=== PATIENT | female | born 1975 | race Caucasian/White ===

== ENCOUNTER → 2016-10-07 17:39 | Outpatient (CLI) | payer MEDICAID ==
[~2016-10-07 17:39] MED LIST: BENADRYL50 MG PO; HYDROCODONE-APA1 TAB PO; PERCOCET 10/3251 TA1 PO; SEROQUEL200 MG PO; VIVELLE-DOT 00.05 MG TD; XANAX0.5 MG PO
== END | disposition home or self-care (01) ==
LOC: D.MAMMO 08-26 08:30
DX: N60.01 Solitary cyst of right breast (principal)

== ENCOUNTER → 2019-05-28 09:37 | Outpatient (CLI) | payer MEDICAID ==
[~2019-05-28 09:37] MED LIST changes: +ATARAX 25 MG TA25 MG PO; +HYDROCODONE-A1 UDTA2 PO; +ROBAXIN500 MG PO
--- NOTE | 2019-05-29 13:38 | EC ---
PATIENT:JESSICA OWENS DATE OF SERVICE: 05/28/19 SEX: F MEDICAL RECORD: [id number] DATE OF : 75 [facility] AGE OF PATIENT: 43 ADMISSION DATE: 05/28/19 REFERRING PHYSICIAN: INTERPRETING PHYSICIAN: LEV VERA MD ECHOCARDIOGRAM REPORT ECHO CHARGES 4 ECHO COMPLETE Date: 05/28/19 CLINICAL DIAGNOSIS: DYSPNEA, CHEST PAIN, EDEMA ECHOCARDIOGRAPHIC MEASUREMENTS (adult normal given) AC root (d.<3.7cm) 3.6 cm LV Septum d (<1.2 cm> 1.2 cm Valve Excursion 1.9 cm LV Septum (systole) 1.4 cm Left Atria (s.<4.0cm> 4.0 cm LVPW d(<1.2cm) 1.4 cm RV (d.<2.3cm) 2.7 cm LVPW (sytole) 1.6 cm LV diastole(<5.6CM) 4.7 cm MV E-F(>70mm/sec) cm LV systole 3.5 cm LVOT Diameter 1.8 cm MV exc.(>10mm) 1.3 cm Est.ejection fraction (50-75%) % DOPPLER: LVIT cm/sec A 66.0 cm/sec E 58.0 cm/sec LA cm/sec RVSP 18 mmHg LVOT 120 cm/sec AOP1/2T m/s Asc. Ao 123 cm/sec RVOT 71 cm/sec RA cm/sec PA 103 cm/sec AV Gradient Peak 6.02 mmHg AV Mean 3.12 mmHg AV Area 2.5 cm MV Gradient Peak 3.62 mmHg MV Mean 1.32 mmHg MV Area cm COMMENTS: Hand Candle Dipper: Anton DAVILA Social Welfare Administrator: 1 Dr. Vera TAPE# PACS Pericardial Effusion N DATE OF SERVICE: 05/28/2019 PROCEDURE: Echocardiogram. FINDINGS: 1. Left ventricular chamber size is within normal limits. Left ventricular systolic function is normal at 60%. 2. Left atrium is dilated at 4.0 cm. Right atrium and right ventricular chamber sizes are within normal limits. 3. Valvular structures have normal structure and motion. ECHOCARDIOGRAM REPORT [id number] JESSICA OWENS 4. Doppler interrogation reveals no significant valvular insufficiency or stenosis and pulmonary systolic pressure is estimated at 18 mmHg. 5. No evidence of pericardial effusion or left ventricular thrombus. TRANSINT:[id number] Voice Confirmation ID: [id number] DOCUMENT ID: [id number] LEV VERA MD at 1338 CC: [id number] DICTATION DATE: 05/28/19 1656 DIVER HELPER: 05/29/19 0132 DEP CLI 05/28/19 [facility] [address] [id number]
--- NOTE | 2019-05-31 09:14 | ST ---
PATIENT:JESSICA OWENS MEDICAL RECORD: [id number] SEX: F LOCATION:[facility] ORDER #: ADMISSION DATE: 05/28/19 AGE OF PATIENT: 43 REFERRING PHYSICIAN: INTERPRETING PHYSICIAN: LEV ALVARADO MD DATE OF SERVICE: 05/28/2019 PROCEDURE: Nuclear stress test. INDICATION: Angina, shortness of breath, edema. TECHNIQUE: She was exercised on standard Lexiscan protocol with 33 mCi of sestamibi injected at peak stress, 11 mCi used previously for rest images. FINDINGS: Gated SPECT reveals preserved ejection fraction at 73% with good wall motion and thickening and brightening throughout all segments. SPECT imaging Cardiolite was used as myocardial perfusion agent. There is reversibility anteriorly and apically. This includes basal, mid, apical anterior segments as well as the apex itself. The degree of reversibility is moderate. The amount of myocardium involved is moderate to large. OVERALL IMPRESSION: This is an intermediate to high risk nuclear stress test reversibility anteriorly and apically suggestive of hemodynamically significant coronary artery disease. TRANSINT:[id number] Voice Confirmation ID: [id number] DOCUMENT ID: [id number] LEV ALVARADO MD at 0914 CC: [id number] DICTATION DATE: 05/29/19 1121 FINANCE ACCOUNTING INTERNSHIP: 05/30/[address] [facility] CLI 05/28/19 [address] [place] [address]
[2019-06-06 09:07] VITALS: BMI 45.9
== END | disposition home or self-care (01) ==
LOC: D.HCCARDIO 09:37 → D.HCCECHO 10:30
PROVIDERS: ATTEND Internal Medicine Interventional Cardiology
DX: R07.9 Chest pain, unspecified (principal)

== ENCOUNTER 2019-06-06 08:33 | Outpatient (CLI) | payer BC ==
[~2019-06-06] VITALS: Ht 175.3 cm; Wt 140.9 kg
--- NOTE | ~2019-06-06 | HEMODYNAMI ---
PATIENT:JESSICA OWENS MEDICAL RECORD: [id number] : 75 LOCATION:[facility] ADMISSION DATE: 06/06/19 Generatedon:06/06/201910:56 Patient name: JESSICA OWENS Patient #: [id number] SSN: [id number] : 1975 Date of study: 06/06/2019 Page: Of Hemodynamic Procedure Report Patient Data Patient Demographics Procedure consent was obtained First Name: JESSICA Gender: Female Last Name: ROMAN : 1975 [facility] Initial: TRINIDAD Age: 43 year(s) Patient #: [id number] Race: SSN: [id number] Additional ID: [id number] Contact details [address]: [address] [place] [address] State: [place] City: [place] Zip code: [address] Past Medical History Allergies Allergen Reaction Date Comments Reported Other allergy 06/06/2019 asprin Admission Admission Data Admission Date: 06/06/2019 Admission Time: 8:33 Arrival Date: 06/06/2019 Arrival Time: 9:30 Insurance Payor: Private health insurance [facility] #: [id number] Height (in.): 68.9 BSA: 2.49 (m2) Height (cm.): 175 BMI: 46.04 (kg/m2) Weight (lbs.): 310.85 Weight (kg.): 141 Lab Results Lab Result Date: 06/06/2019 Lab Result Time: 0:00 Biochemistry Name Units Result Min Max BUN mg/dl 16 --(---*)-- 7 18 Creatinine mg/dl 0.9 --(-*--)-- 0.6 1.3 eGFR ml/min 72 *-(----)-- 90 120 NONAFRICAN CBC Name Units Result Min Max Hemoglobin g/dl 13.4 -*(----)-- 13.5 17.5 Procedure Procedure Types Cath Procedure Diagnostic Procedure LHC LHC w/Coronaries Sedation Charges Moderate Sedation up to 15 minutes Procedure Description Procedure Date Procedure Date: 06/06/2019 Procedure Start Time: 10:44 Procedure End Time: 10:53 Procedure Staff Name Function Dontrell Vera MD Performing Physician Aziza Donovan RT Monitor Flor Mccall RT Monitor Ana Maria Toledo RT Scrub Jewels Sheth RN Nurse Indication Angina Procedure Data Cath Procedure Fluoroscopy Diagnostic fluoroscopy Total fluoroscopy Time: 0.9 time: 0.9 min min Diagnostic fluoroscopy Total fluoroscopy dose: 419 dose: 419 mGy mGy Contrast Material Contrast Material Type Amount (ml) Isovue 300 36 Entry Location Entry Primary Successful Side Size Upsize Upsize Entry Closure Felix ccessful Closure Location (Fr) 1 (Fr) 2 (Fr) Remarks Device Remarks Radial Right 6 Fr Mechanical artery Short Compression Diagnostic catheters Device Type Used For End Catheter Placement DIAGNOSTIC [place] 110cm 5 Multi-vessel Fr catheter ([id number]) Angiography Procedure Complications No complications Procedure Medications Medication Administration Route Dosage 0.9% NaCl I.V. 100 ml/hr Oxygen etCO2 Nasal cannula 2 l/min Lidocaine 2% added to field 20 Heparin Flush Bag added to field 2 bags (1000units/500ml NS) Radial Cocktail added to field 1 syringe (Verapamil 2mg/Nitro 400mcg/Heparin 1500units) Versed I.V. 2 mg Fentanyl I.V. 50 mcg Versed I.V. 2 mg Fentanyl I.V. 50 mcg Versed I.V. 2 mg Fentanyl I.V. 50 mcg Versed I.V. 2 mg Fentanyl I.V. 50 mcg Hemodynamics Rest BSA: 2.49 (m2) HGB: 13.4 (g/dl) O2 Consumption: Estimated: 268.04 (ml/min) O2 Co nsumption indexed: Estimated:107.65 (ml/min/m) Heart Rate: 89 (bpm) Pressure Samples Time Site Value (mmHg) Purpose Heart Use Rate(bpm) 10:46 LV 96/29,24 Snapshot 176 Snapshots Pre Cath Intra NCS Post Cath Vital Signs Time Heart Resp SPO2 etCO2 NIBP (mmHg) Rhythm Pain Sedation Rate (ipm) (%) (mmHg) Status Level (bpm) 10:16:27 81 16 100 23 142/100(117) NSR 0 (11) 10(A) , No pain 10:20:39 88 12 100 9.7 160/98(131) NSR 0 (11) 10(A) , No pain 10:25:02 85 15 100 18.7 160/88(100) NSR 0 (11) 10(A) , No pain 10:29:16 73 16 100 30 138/90(118) NSR 0 (11) 10(A) , No pain 10:33:25 76 19 98 29.3 144/94(133) NSR 0 (11) 10(A) , No pain 10:37:41 74 21 100 36 120/87(110) NSR 0 (11) 10(A) , No pain 10:41:51 77 16 100 32.3 118/74(104) NSR 0 (11) 10(A) , No pain 10:45:59 87 19 100 39.8 137/82(107) NSR 0 (11) 10(A) , No pain 10:50:07 100 45 116/78(89) NSR 0 (11) 10(A) , No pain 10:54:15 99 41.3 125/76(106) NSR 0 (11) 10(A) , No pain Medications Time Medication Route Dose Verified Delivered Reason Notes E ffectiveness by by 10:28:49 0.9% NaCl I.V. 100 Dontrell Jewels used for ml/hr Chuy Sheth hospital receiving clerk 10:28:55 Oxygen etCO2 2 l/min Dontrell Jewels used for Nasal Chuy Sheth procedure cannula RN 10:29:01 Lidocaine 2% added 20ml Dontrell Dontrell for local to vial Chuy Vera MD anesthetic field 10:29:05 Heparin Flush added 2 bags Dontrell Jon used for Bag to Chuy Vera MD procedure (1000units/500ml field NS) 10:29:12 Radial Cocktail added 1 Dontrell Dontrell used for (Verapamil to syringe Chuy Vera MD procedure 2mg/Nitro field 400mcg/Heparin 1500units) 10:29:19 Versed I.V. 2 mg Dontrell Jewels for Chuy Sheth sedation RN 10:29:24 Fentanyl I.V. 50 mcg Dontrell Jewels for Chuy Sheth sedation RN 10:34:05 Fentanyl I.V. 50 mcg Dontrell Jewels for Chuy Sheth sedation RN 10:34:57 Versed I.V. 2 mg Dontrell Jewels for Chuy Sheth sedation RN 10:39:12 Versed I.V. 2 mg Dontrell Simmsa for Chuy Sheth sedation RN 10:39:19 Fentanyl I.V. 50 mcg Dontrell Simmsa for Chuy Sheth sedation RN 10:44:31 Versed I.V. 2 mg Dontrell Moranyla for Chuy Sheth sedation RN 10:44:40 Fentanyl I.V. 50 mcg Dontrell Moranyla for Chuy Sheth sedation supervisor alteration workroom Log Time Note 9:54:45 Arrival Date: 06/06/2019 9:30:00 AM 9:55:12 Insurance Payor : Private health insurance 9:55:21 Patient Height : 68.9 inches 9:55:31 Patient Weight : 310.85 lbs 9:56:45 Lab Result : eGFR NONAFRICAN 72 ml/min 9:56:45 Lab Result : Hemoglobin 13.4 g/dl 9:56:45 Lab Result : BUN 16 mg/dl 9:56:45 Lab Result : Creatinine 0.9 mg/dl 9:56:56 Diagnostic Cath Status : Elective 9:58:23 Indication : Angina 10:00:47 ACC Patient presents with Stable Angina CCS Anginal Class 3--Marked limitation of physical activity, angina occurs with ordinary activity.. 10:01:30 ACCPatient has been prescribed/administered the following anti-anginal medication within the last 2 weeks: None 10:01:36 Procedure Status Elective Heart Cath (OP). 10:02:08 Jewels Sheth RN sent for patient. Start room use. 10:02:11 Time tracking: Regular hours (M-F 7:00 - 5:00) 10:02:25 Plan of Care:Hemodynamics will remain stable., Cardiac rhythm will remain stable., Comfort level will be maintained., Respiratory function will remain adequate., Patient/ family verbilizes understanding of procedure., Procedure tolerated without complication., Recovers from procedure without complications.. 10:11:52 Patient received from Pre/Post Procedure Room to CCL 2 Alert and oriented. Tansferred to table in Supine position. 10:12:00 Signed procedure consent form obtained from patient. 10:12:03 Warm blankets applied, and padmini hugger turned on for patient comfort. 10:12:05 Warm blankets applied, and padmini hugger turned on for patient comfort. 10:12:12 Correct patient and procedure confirmed by team. 10:12:12 ECG and BP/O2 sat monitors applied to patient. 10:15:25 Vital chart was started 10:15:30 Baseline sample Acquired. 10:15:38 Rhythm: sinus rhythm 10:15:40 Full Disclosure recording started 10:15:51 - 10:15:58 H&P Date Dictated: 06/06/2019 H&P Addendum completed by physician on day of procedure. (MUST COMPLETE FOR ALL OUTPATIENTS), New H&P dictated by physician.. 10:16:01 Pre-procedure instructions explained to patient. 10:16:03 Pre-op teaching completed and patient verbalized understanding. 10:16:08 Family in waiting room. 10:16:11 Patient NPO since Midnight. 10:16:32 Patient allergic to Other allergyasprin 10:16:49 Is the patient allergic to Iodine/contrast media? No. 10:17:15 Is patient on blood thinner?No 10:17:22 ACC The patient was administered the following blood thiners within the last 24 hours: None 10:17:27 Patient diabetic? No. 10:19:15 ----Pre-sedation anethsthesia assessment.---- 10:19:20 Previous problem with sedation/anesthesia? No ? 10:19:24 Snore? Yes 10:19:26 Sleep apnea? No 10:19:28 Deviated septum? No 10:19:30 Opens mouth fully? Yes 10:19:44 Sticks out tongue? Yes 10:20:22 Airway obstruction? Yes asthma 10:20:28 Dentures? No ? 10:22:20 Pre procedure: left dorsailis pedis pulse 2+ Normal; easily identifiable; not easily obliterated 10:22:20 Pre procedure: right dorsailis pedis pulse 2+ Normal; easily identifiable; not easily obliterated 10:22:24 Modified Jean-Pierre's test Radial < 7 seconds 10:22:36 Patient pain scale 0/10 ?. 10:23:22 IV patent on arrival in left hand with 0.9% NaCl at [facility]. 10:23:33 Lab results completed and on chart. 10:23:46 Right Radial & Right Groin area was prepped with chlora-prep and draped in sterile fashion 10:23:48 Alarms reviewed by R. N. 10:23:49 Sharps counted by scrub and verified by R.N. 10:25:06 Patient not . Patient has had hysterectomy. 10:26:04 Use device set Radial Dx or PCI 10:26:06 ACIST Syringe (24274) opened to sterile field. 10:26:07 Medline Cath Pack ([id number]) opened to sterile field. 10:26:08 Bag Decanter (2002S) opened to sterile field. 10:26:09 ACIST Hand Control (41225) opened to sterile field. 10:26:10 ACIST Manifold (20850) opened to sterile field. 10:26:11 Tegaderm 4 x 4 (1626W) opened to sterile field. 10:26:17 MBrace Wrist Support ([id number]) opened to sterile field. 10:26:21 SHEATH 6FR RAIN (4624622) opened to sterile field. 10:26:25 EMERALD Guide Wire (403-483) opened to sterile field. 10:27:27 Physician arrived 10:27:28 --------ALL STOP TIME OUT------ 10:27:29 Final Timeout: patient, procedure, and site verified with staff and physician. All members of the team are in agreement. 10:27:33 Right Radial & Right Groin site verified by team. 10:27:42 Fire Safety Assessment: A--An alcohol-based skin anteseptic being used preoperatively., C--Open oxygen or nitrous oxide is being used., D--An ESU, laser, or fiber-optic light is being used. 10:27:51 2) 60-89 Mildly reduced kidney function, and other findings (as for stage 1) point to kidney disease. 10:27:59 Maximum allowable contrast dose (3.7 X eGFR X 0.75)199 ml. 10:28:00 Physical assessment completed. ASA score P 2 - A patient with mild systemic disease as per Dontrell Vera MD. 10:28:06 Sedation plan: IV Moderate Sedation Medication:Versed, Fentanyl 10:28:41 Zero performed for pressure channel P1 10::49 0.9% NaCl 100 ml/hr I.V. was administered by Jewels Sheth RN; used for procedure; Verbal order read back and verified. 10:28:55 Oxygen 2 l/min etCO2 Nasal cannula was administered by Jewels Sheth RN ; used for procedure; Verbal order read back and verified. 10:29:01 Lidocaine 2% 20ml vial added to field was administered by Dontrell Vera MD; for local anesthetic; Verbal order read back and verified. 10:29:05 Heparin Flush Bag (1000units/500ml NS) 2 bags added to field was administered by Dontrell Vera MD; used for procedure; Verbal order read back and verified. 10:29:12 Radial Cocktail (Verapamil 2mg/Nitro 400mcg/Heparin 1500units) 1 syring e added to field was administered by Dontrell Vera MD; used for procedure; Verbal order read back and verified. 10:29:19 Versed 2 mg I.V. was administered by Jewels Sheth RN; for sedation; Verbal order read back and verified. 10:29:24 Fentanyl 50 mcg I.V. was administered by Jewels Sheth RN; for sedation ; Verbal order read back and verified. 10:34:05 Fentanyl 50 mcg I.V. was administered by Jewels Sheth RN; for sedation ; Verbal order read back and verified. 10:34:57 Versed 2 mg I.V. was administered by Jewels Sheth RN; for sedation; Verbal order read back and verified. 10:39:12 Versed 2 mg I.V. was administered by Jewels Sheth RN; for sedation; Verbal order read back and verified. 10:39:19 Fentanyl 50 mcg I.V. was administered by Jewels Sheth RN; for sedation ; Verbal order read back and verified. 10:43:49 Procedure started. 10:44:02 Local anesthetic to right radial artery with Lidocaine 2% by Dontrell Vera MD.INITIAL ACCESS ONLY 10:44:31 Versed 2 mg I.V. was administered by Jewels Sheth RN; for sedation; Verbal order read back and verified. 10:44:40 Fentanyl 50 mcg I.V. was administered by Jewels Sheth RN; for sedation ; Verbal order read back and verified. 10:44:40 A 6 Fr Short sheath was inserted into the Right Radial artery 10:45:11 A DIAGNOSTIC [place] 110cm 5 Fr catheter ([id number]) was advanced over the wire and used for Multi-vessel Angiography. 10:46:29 LV hemodynamics recorded. 10:46:37 EF : 60 % 10:46:42 LV gram done using REEDER 10:46:49 Injector settings: Ml/sec: 5, Volume: 15, 10:46:56 LCA angiography performed. 10:47:06 Injector settings: Ml/sec: 3, Volume: 6, 10:47:30 ACCDominant side:Right 10:47:36 RCA angiography performed. 10:47:45 Catheter removed. 10:48:02 ZEPHYR REGULAR TR BAND (959905) opened to sterile field. 10:48:35 Sheath removed intact; hemostasis achieved with Mechanical Compression to the Right Radial artery. 10:48:39 Procedure ended.(Physican Out) 10:49:00 Fluoroscopy time 00.90 minutes. 10:49:06 Flurop Dose total: 419 10:49:06 Fluoroscopy dose: 419 mGy 10:49:18 Dose Area Product 21546 mGy/cm. 10:49:25 Contrast amount:Isovue 300 36ml. 10:49:30 Maximum allowable dose exceeded? No. 10:49:31 Sharps counted by scrub and verified by R.N. 10:49:43 [place] band inflated with 8cc of air. 10:49:45 Insertion/operative site no bleeding no hematoma. 10:50:16 Post right radial artery:stable 10:50:19 Post Procedure Pulses reassessed and unchanged 10:52:17 Post-procedure physical assessment completed. ASA score P 2 - A patient with mild systemic disease as per Dontrell Vera MD. 10:52:22 Post procedure rhythm: unchanged. 10:52:26 Post procedure instruction explained to patient.Patient verbalizes understanding. 10:52:28 Patient needs reinforcement of post procedure teaching. 10:53:14 Procedure type changed to Cath procedure, Diagnostic procedure, LHC, LH C w/Coronaries, Sedation Charges, Moderate Sedation up to 15 minutes 10:53:17 Procedure and supply charges have been captured, reviewed, submitted an d are correct. 10:53:26 Procedure Complication : No complications 10:53:29 Vital chart was stopped 10:53:30 See physician's report for complete and final results. 10:53:33 Report given to Pre/Post Procedure Room. 10:53:40 Patient transfered to Pre/Post Procedure Room with Stretcher. 10:53:45 Procedure ended. 10:53:45 Full Disclosure recording stopped 10:53:58 End room use (Document Last) Device Usage Item Name Manufacture Quantity Catalog Hospital Part Current Minima l Lot# / Number Charge Number Stock Stock Serial# Code ACIST Acist 1 14919 [id number] 395996 [id number] 20 Syringe Medical (09638) Systems Inc Medline Medline 1 [id number] 623153 10112 533376 5 Cath Pack ([id number]) Bag Microtek 1 2001S 712067 68392 844219 5 Decanter Medical Inc. () ACIST Hand Acist 1 65298 019013 663033 902837 5 Control Medical (03177) Systems Inc ACIST Acist 1 63437 514241 749163 650833 5 Manifold Medical (18275) Systems Inc Tegaderm 4 3M 1 1626W 558132 277014 983705 5 x 4 (1626W) MBrace Advanced 1 140-0250-00 479470 38620 463886 5 Wrist Vascular Support Dynamics ([id number]) SHEATH 6FR Cardinal 1 8475174 919769 6839247 664075 5 RAIN Health (8778194) EMERALD Cardinal 1 502-455 344060 357310 485017 5 Guide Wire Health (502-455) DIAGNOSTIC Terumo 1 40-5013 646541 029257 958850 5 [place] 110cm 5 Fr catheter (493158) ZEPHYR Cardinal 1 957783 437687 7935294 904502 5 REGULAR TR Health BAND (688465) Signature Audit [place] Stage Time Signature Unsigned Intra-Procedure 06/06/2019 Flor 10:54:57 AM Stefany RT(R) (CV) Intra-Procedure 06/06/2019 Jewels Sheth 10:55:58 AM RN Intra-Procedure 06/06/2019 Dontrell Vera 10:56:30 [id number] [place] [id number]
[~2019-06-06 08:33] MED LIST changes: -ATARAX 25 MG TA25 MG PO; -HYDROCODONE-A1 UDTA2 PO; -ROBAXIN500 MG PO
[2019-06-06] MEDS ORDERED: ATARAX 25 MG TA25 MG PO (08:49)
[2019-06-06] MEDS ORDERED: ROBAXIN500 MG PO (08:49)
[2019-06-06] MEDS ORDERED: HYDROCODONE-A1 UDTA2 PO (08:50)
[2019-06-06 09:07] VITALS: BP 138/80; Ht 175.3 cm; Wt 140.9 kg
[2019-06-06 09:31] LABS: BASOPHILS 0.3 % (0-2); EOSINOPHILS 1.6 % (0-7); HEMOGLOBIN 13.4 g/dL (12-16); IMMATURE GRANULOCYTES 0.3 % (0-5); MCH 29.4 pg (26.0-34.0); MCHC 32.7 g/dL (31.0-37.0); MCV 89.9 fL (80.0-100.0); MEAN PLATELET VOLUME 8.9 fL (7.4-10.4); MONOCYTES 7.2 % (2-11); NEUTROPHILS 49.6 % (40-80); PLATELET COUNT 227 10x3/uL (130-400); RBC 4.56 10x6/uL (4.00-5.40); RDW 13.6 % (11.5-14.5); WBC 6.1 10x3/uL (4.8-10.8)
[2019-06-06 09:46] LABS: ANION GAP 12.6 mmol/L (8-16); CALCIUM 8.5 mg/dL (8.5-10.1); CARBON DIOXIDE 24.4 mmol/L (21.0-32.0); CREATININE - SERUM 0.9 mg/dL (0.6-1.3)
--- NOTE | 2019-06-06 11:15 | NUR ---
SANDWICH AND PO FLUIDS SERVED. PT IS SITTING UP IN BED, ALERT AND DENIES ANY C/O. Z BAND IS CDI, FINGERS WARM AND CAP REFILL IS BRISK. VSS. FAMILY AT BEDSIDE. CALL LIGHT IN REACH.
--- NOTE | 2019-06-06 11:58 | NUR ---
3 CC OF AIR WEANED FROM Z BAND WITH NO BLEEDING NOTED. PT ALERT, VSS, SITTING UP IN BED VISITING WITH FAMILY.
--- NOTE | 2019-06-06 12:12 | NUR ---
3 CC OF AIR WEANED FROM Z BAND WITH NO BLEEDING NOTED. PT DENIES ANY C/O,
--- NOTE | 2019-06-06 12:20 | NUR ---
DR ALVARADO HAS ROUNDED ON PT
--- NOTE | 2019-06-06 12:43 | NUR ---
1225 ALL AIR WEANED FROM Z BAND WITH NO BLEEDING NOTED. FINGERS WARM AND CAP REFILL IS BRISK. Z BAND REMOVED AND 2X2, TEGADERM PLACED TO SITE, WRIST IMMOBILIZER IN PLACE.. 1240 IV DC'D WITH CATH INTACT, DRESSING REMAINS CDI RIGHT WRIST. PT DRESSING FOR DC TO HOME.
--- NOTE | 2019-06-06 12:58 | NUR ---
1250 PT HAS DRESSED FOR DC. DRESSING REMAINS CDI TO RIGHT WRIST, WRIST IMMOBILIZER IN PLACE. PT IS ALERT AND DENIES ANY C/O. PT ESCORTED TO PRIVATE AUTO VIA WC BY NURSE WITH DRIVING HER HOME.
--- NOTE | 2019-06-14 13:30 | CN ---
PATIENT NAME:JESSICA OWENS MEDICAL RECORD: [id number] : 75 LOCATION:D.CAT ADMIT DATE: ACCOUNT: [id number] CONSULTING PHYSICIAN: LEV ALVARADO MD REFERRING PHYSICIAN: LEV ALVARADO MD DATE OF CONSULTATION: ADDENDUM The patient underwent cardiac catheterization, which was normal; however, lipid panel needed attention. She does not have cardiac disease and will not have cardiac followup. She will follow up with her primary care physician regarding this. TRANSINT:[id number] Voice Confirmation ID: [id number] DOCUMENT ID: [id number] LEV ALVARADO MD at 1330 CC: [id number] DICTATION DATE: 06/12/19 1201 HEAD TENNIS PROFESSIONAL: 06/12/19 1250 DEP CLI 06/06/19 [id number] [place] [address]
--- NOTE | 2019-06-14 13:30 | OP ---
PATIENT NAME: JESSICA OWENS MEDICAL RECORD: [id number] :75 LOCATION:D.CAT ADMISSION DATE: SURGEON: LEV ALVARADO MD DATE OF OPERATION: 06/06/2019 PROCEDURES: 1. Left heart catheterization. 2. Selective coronary angiography. 3. Left ventriculogram. INDICATION: Angina, abnormal nuclear stress test. DESCRIPTION OF PROCEDURE: After informed consent was obtained and after a detailed description of risks, benefits as well as alternative therapies, the patient elected to proceed with angiogram and heart catheterization. The right radial area was prepped and draped in normal sterile fashion. Right radial artery was cannulated via modified Seldinger technique with placement of 5-[place] sheath. All catheters exchanged through sheath. FINDINGS: The left ventriculogram was performed in standard 30-degree REEDER view, reveals good cardiac wall motion, ejection fraction is 60%. SELECTIVE CORONARY ANGIOGRAPHY: Left main, left anterior descending, left circumflex, and right coronary are all smooth-walled vessels with no angiographic evidence of coronary artery disease. OVERALL IMPRESSION: 1. No angiographic evidence of coronary artery disease. 2. Normal left heart pressures. 3. Normal left ventricular systolic function. Chest pain is noncardiac in etiology. TRANSINT:[id number] Voice Confirmation ID: [id number] DOCUMENT ID: [id number] LEV ALVARADO MD at 1330 CC: [id number] DICTATION DATE: 06/06/19 1051 POND WORKER: 06/06/19 1205 DEP CLI 06/06/19 [id number] [place] [id number]
== END 2019-06-06 12:50 | disposition home or self-care (01) ==
LOC: D.CATH 08:33
PROVIDERS: ATTEND Internal Medicine Interventional Cardiology
DX: R07.9 Chest pain, unspecified (principal); R94.30 Abnormal result of cardiovascular function study, unspecified

== ENCOUNTER 2020-03-24 11:30 | Outpatient (CLI) | payer BC ==
[2019-06-06 09:07] VITALS: BMI 45.9
[~2020-03-24 11:30] MED LIST changes: +ATARAX 25 MG TA25 MG PO; +HYDROCODONE-A1 UDTA2 PO; +ROBAXIN500 MG PO
== END 2020-03-24 12:00 | disposition home or self-care (01) ==
LOC: D.MAMMO 11:30
PROVIDERS: ATTEND General Practice
DX: Z12.31 Encounter for screening mammogram for malignant neoplasm of breast (principal)